=== PATIENT | female | born 1950 | race Caucasian/White ===

== ENCOUNTER 2018-09-23 06:35 | Inpatient (IN) | payer MEDICARE, MEDICAID ==
[~2018-09-23] VITALS: Ht 154.9 cm; Wt 80.3 kg
[2018-09-23] MEDS ORDERED: LACTATED RINGERS 1,000 ML IV SCH (07:45)
[2018-09-23 08:03] LABS: CLARITY URINE CLEAR (CLEAR); COLOR URINE YELLOW (YELLOW); KETONES URINE NEGATIVE (NEGATIVE); LEUKOCYTE ESTERASE URINE TRACE (NEGATIVE); NITRITE URINE NEGATIVE (NEGATIVE); OCCULT BLOOD URINE TRACE (NEGATIVE); PH URINE 5.5 (4.5-8.0); PROTEIN URINE NEGATIVE (NEGATIVE); SPECIFIC GRAVITY URINE 1.013 (1.005-1.030); UROBILINOGEN URINE 0.2 E.U./dL (0.2-1.0)
[2018-09-23] MEDS ORDERED: TRANEXAMIC ACID 1,000 MG in SODIUM CHLORIDE 0.9% 100 ML IV NR (09:15)
[2018-09-23] MEDS ORDERED: MORPHINE SULFATE/PF 1MG/ML 10ML AMP ONE (09:16)
[2018-09-23] MEDS ORDERED: BUPIVACAINE/EPINEPH/PF 0.25%/0.0005 10ML ONE (09:16)
[2018-09-23] MEDS ORDERED: NORMAL SALINE 0.9% 10 ML SYR ONE (09:17)
[2018-09-23] MEDS ORDERED: EPINEPHRINE 1:1000 1 MG/ML AMP ONE (09:17)
[2018-09-23] MEDS ORDERED: BACITRACIN 50,000 UNITS/VIAL ONE (09:17)
[2018-09-23] MEDS ORDERED: FENTANYL CITRATE/PF 50MCG/ML 2ML VIAL ONE (10:15)
[2018-09-23] MEDS ORDERED: LIDOCAINE HCL/PF 1% 10 MG/ML 5ML VIAL ONE (10:15)
[2018-09-23] MEDS ORDERED: PROPOFOL 200MG/20ML VIAL IV ONE (10:15)
[2018-09-23] MEDS ORDERED: MIDAZOLAM HCL 2 MG/2 ML VIAL ONE (10:15)
[2018-09-23] MEDS ORDERED: ROCURONIUM BROMIDE 10MG/ML VIAL 5ML IV ONE ×2 (10:16→12:42)
[2018-09-23] MEDS ORDERED: SUCCINYLCHOLINE CHLORIDE 200MG/10ML IV ONE (10:16)
[2018-09-23] MEDS ORDERED: ESMOLOL HCL 10MG/ML 10ML VIAL IV ONE (10:21)
[2018-09-23] MEDS ORDERED: SODIUM CHLORIDE 0.9% 10ML VIAL ONE ×2 (10:33→12:21)
[2018-09-23] MEDS ORDERED: CEFAZOLIN SODIUM 1000MG/VIAL ONE (10:33)
[2018-09-23] MEDS ORDERED: DEXAMETHASONE 4MG/ML 1ML VIAL ONE (11:19)
[2018-09-23 11:59] LABS: CLARITY URINE CLEAR (CLEAR); COLOR URINE YELLOW (YELLOW); KETONES URINE NEGATIVE (NEGATIVE); LEUKOCYTE ESTERASE URINE NEGATIVE (NEGATIVE); NITRITE URINE NEGATIVE (NEGATIVE); OCCULT BLOOD URINE NEGATIVE (NEGATIVE); PROTEIN URINE NEGATIVE (NEGATIVE); SPECIFIC GRAVITY URINE 1.009 (1.005-1.030); UROBILINOGEN URINE 0.2 E.U./dL (0.2-1.0)
[2018-09-23] MEDS ORDERED: EPHEDRINE SULFATE 50MG/ML VIAL ONE (12:21)
[2018-09-23] MEDS ORDERED: MELO-106 PO (12:42)
[2018-09-23] MEDS ORDERED: ATOR20TA65 PO (12:42)
[2018-09-23] MEDS ORDERED: IRBE300T18 PO (12:42)
[2018-09-23] MEDS ORDERED: ATEN50TA PO (12:42)
[2018-09-23] MEDS ORDERED: VANCOMYCIN HCL 500 MG/VIAL ONE (13:09)
[2018-09-23] MEDS ORDERED: GLYCOPYRROLATE 0.2 MG/ML 2ML VIAL ONE (14:00)
[2018-09-23] MEDS ORDERED: NEOSTIGMINE METHYLSULFATE 1MG/ML 10 ML VIAL ONE (14:01)
[2018-09-23] MEDS ORDERED: MAGNESIUM HYDROXIDE 400MG/5ML 30ML UDC PO PRN (15:15)
[2018-09-23] MEDS ORDERED: HYDROCODONE/ACETAMINOPHEN 5/325MG TABLET PO PRN (15:15)
[2018-09-23] MEDS ORDERED: ZOLPIDEM TARTRATE 5MG TABLET PO PRN (15:15)
[2018-09-23] MEDS ORDERED: ACETAMINOPHEN 325MG TABLET PO PRN (15:15)
[2018-09-23] MEDS ORDERED: ONDANSETRON HCL 4MG/2ML INJ IV PRN (15:15)
[2018-09-23] MEDS ORDERED: NALOXONE INJ IV PRN (15:30)
[2018-09-23] MEDS ORDERED: MORPHINE PCA 50MG/50ML IV PRN (15:30)
[2018-09-23] MEDS ORDERED: HYDROMORPHONE HCL/PF 2MG/ML CPJ IV PRN (15:45)
[2018-09-23] MEDS: DOCUSATE SODIUM 100MG CAPSULE PO SCH (17:00)
[2018-09-23 18:01] VITALS: BP 133/59
[2018-09-23 18:26] VITALS: BP 133/59
[2018-09-23] MEDS ORDERED: CEFAZOLIN 2,000 MG in DEXT 5% WATER 100 ML IV SCH (18:30)
[2018-09-23 20:00] VITALS: BP 111/58
[2018-09-23] MEDS: ONDANSETRON INJ IV PRN (22:52)
[2018-09-24] VITALS: BP 105/51
[2018-09-24] MEDS: ONDANSETRON INJ IV PRN ×2 (03:16→16:32)
[2018-09-24 04:00] VITALS: BP 116/61
[2018-09-24 06:20] LABS: BASOPHILS % 0.2 % (0.0-2.0); HEMATOCRIT. 37.8 % (36.0-48.0); HEMOGLOBIN. 12.6 g/dL (12.0-16.0); LYMPHOCYTES % 7.7 % (20.0-50.0); MEAN CORPUSCULAR HEMOGLOBIN 30.9 pg (28.0-32.0); MEAN CORPUSCULAR VOLUME 92.5 fL (81.0-99.0); MEAN PLATELET VOLUME 6.4 fl (7.4-10.4); MONOCYTES % 11.1 % (2.0-8.0); PLATELET 232 x1000/uL (130-400); RED BLOOD CELL COUNT 4.09 mill/uL (4.2-5.4); RED CELL DISTRIBUTION WIDTH 13.2 % (11.6-14.6)
[2018-09-24 06:45] LABS: CHLORIDE 109 mEq/L (98-107)
[2018-09-24 08:00] VITALS: BP 112/60
[2018-09-24] MEDS: DOCUSATE SODIUM 100MG CAPSULE PO SCH ×2 (09:42→16:32)
[2018-09-24] MEDS: ENOXAPARIN 40MG/0.4ML SYR SUBCUT SCH (09:42)
[2018-09-24] MEDS: DIPHENHYDRAMINE INJ IV PRN (10:44)
[2018-09-24 12:00] VITALS: BP 129/59
[2018-09-24 16:00] VITALS: BP 102/54
[2018-09-24 20:00] VITALS: BP 105/49
[2018-09-24] MEDS: HYDROCODONE/ACETAMINOPHEN 5/325MG TABLET PO PRN (20:34)
[2018-09-25] VITALS: BP 104/53
[2018-09-25] MEDS: FLUCONAZOLE 100MG TABLET PO SCH ×2 (01:18→08:16)
[2018-09-25 01:49] LABS: BASOPHILS % 0.1 % (0.0-2.0); HEMATOCRIT. 35.7 % (36.0-48.0); HEMOGLOBIN. 11.9 g/dL (12.0-16.0); LYMPHOCYTES % 11.5 % (20.0-50.0); MEAN CORPUSCULAR HEMOGLOBIN 30.8 pg (28.0-32.0); MEAN CORPUSCULAR VOLUME 92.6 fL (81.0-99.0); MEAN PLATELET VOLUME 6.8 fl (7.4-10.4); MONOCYTES % 10.9 % (2.0-8.0); NEUTROPHILS % 77.5 % (40.0-76.0); PLATELET 194 x1000/uL (130-400); RED BLOOD CELL COUNT 3.86 mill/uL (4.2-5.4); RED CELL DISTRIBUTION WIDTH 13.3 % (11.6-14.6)
[2018-09-25 02:00] LABS: CHLORIDE 108 mEq/L (98-107)
[2018-09-25 04:00] VITALS: BP 123/65
[2018-09-25] MEDS: HYDROCODONE/ACETAMINOPHEN 5/325MG TABLET PO PRN ×2 (04:33→11:04)
[2018-09-25] MEDS: DOCUSATE SODIUM 100MG CAPSULE PO SCH ×3 (08:16→18:29)
[2018-09-25] MEDS: ENOXAPARIN 40MG/0.4ML SYR SUBCUT SCH (08:17)
[2018-09-25 12:13] VITALS: BP 119/60
[2018-09-25] MEDS ORDERED: TRIAMCINOLONE ACETONIDE 0.1% DENTAL PASTE 5GM DT PRN (13:00)
[2018-09-25] MEDS ORDERED: LIDOCAINE HCL 2% JELLY 5ML MM SCH (14:00)
[2018-09-25 16:00] VITALS: BP 127/68
[2018-09-25] MEDS: DIPHENHYDRAMINE INJ IV PRN (16:46)
[2018-09-25] MEDS ORDERED: VISCOUS LIDOCAINE 2% 15 ML UDC MM SCH (17:00)
[2018-09-25 18:43] VITALS: BP 125/63
== END 2018-09-25 20:01 | disposition home health service (06) | DRG 301 ==
LOC: OR 06:35 → 6EST 06:36
PROVIDERS: ADMIT Orthopaedic Surgery; ATTEND Orthopaedic Surgery
PROC: 0SR904Z Replacement of Right Hip Joint with Ceramic on Polyethylene Synthetic Substitute, Open Approach (ICD-10-PCS; principal; 2018-09-23)
DX: M16.11 Unilateral primary osteoarthritis, right hip (principal); E66.9 Obesity, unspecified; B37.9 Candidiasis, unspecified; D72.829 Elevated white blood cell count, unspecified; I10 Essential (primary) hypertension; E78.5 Hyperlipidemia, unspecified; M25.751 Osteophyte, right hip; R73.9 Hyperglycemia, unspecified; R20.2 Paresthesia of skin; J45.909 Unspecified asthma, uncomplicated; K13.0 Diseases of lips; Q65.89 Other specified congenital deformities of hip; Z68.33 Body mass index [BMI] 33.0-33.9, adult; Z88.8 Allergy status to other drugs, medicaments and biological substances; Z98.891 History of uterine scar from previous surgery
CPT/HCPCS: 36415; 73501; 73502; 80048; 80051; 83036; 86850; 86900; 88305; 88311; 97110; 97116; 97162; 97166; 97530; 97535; C1776; J0171; J0330; J0690; J1100; J1170; J1200; J1650; J2250; J2270; J2274; J2405; J2704; J2710; J3010; J3370; J3490; J7040; J7050; J7060